=== PATIENT | female | born 2000 | race African-American/Black ===

== ENCOUNTER 2024-12-21 18:36 | Emergency (ER) | payer MEDICAID ==
[~2024-12-21] VITALS: Ht 167.6 cm; Wt 91.0 kg
[2024-12-21 18:42] VITALS: BP 117/66; TEMP 37; O2SAT 100
[2024-12-21 18:44] VITALS: PULSE 102; RESP 22; O2SAT 99
[2024-12-21] MEDS: FLUORESCEIN SODIUM 1MG/STRIP LEFTEYE ONE (22:25)
[2024-12-21] MEDS: TETRACAINE 0.5% OPHTH DROPS 4ML LEFTEYE ONE (22:26)
[2024-12-21] MEDS ORDERED: PROP1DRO2 MT (22:31)
== END 2024-12-21 22:47 | disposition home or self-care (01) ==
LOC: ER 18:36
DX: H57.12 Ocular pain, left eye (principal); H57.89 Other specified disorders of eye and adnexa; Z90.49 Acquired absence of other specified parts of digestive tract
CPT/HCPCS: 99282